=== PATIENT | female | born 1980 | race Caucasian/White ===

== ENCOUNTER → 2017-02-07 | Outpatient (CLI) | payer OTHER ==
[2017-02-07 09:21] LABS: BASOPHILS # (AUTO) 0.1 X10^3/uL (0.0-0.1); BASOPHILS % (AUTO) 1.2 % (0.2-1.0); EOSINOPHILS # (AUTO) 0.4 x10^3/uL (0.0-0.2); HEMATOCRIT 42.8 % (36.0-47.0); HEMOGLOBIN 14.8 g/dL (12.0-16.0); LYMPHOCYTES # (AUTO) 1.9 X10^3/uL (1.3-2.9); LYMPHOCYTES % (AUTO) 21.6 % (21.0-51.0); MEAN CORPUSCULAR HEMOGLOBIN 31.3 pg (27.0-34.0); MEAN CORPUSCULAR HGB CONC 34.5 g/dL (33.0-35.0); MEAN CORPUSCULAR VOLUME 90.7 fL (80.0-100.0); MEAN PLATELET VOLUME 8.4 fL (7.4-11.0); MONOCYTES # (AUTO) 0.6 x10^3/uL (0.3-0.8); MONOCYTES % (AUTO) 6.2 % (0.0-13.0); NEUTROPHILS # (AUTO) 5.9 x10^3/uL (2.2-4.8); PLATELET COUNT 224 X10^3/uL (150.0-450.0); RED BLOOD COUNT 4.72 X10^6/uL (3.5-5.4); RED CELL DISTRIBUTION WIDTH 12.7 % (11.6-16.5)
[2017-02-07 09:30] LABS: BLOOD UREA NITROGEN 9 mg/dL (7-18); CALCIUM 8.7 mg/dL (8.5-10.1); CARBON DIOXIDE 29.7 mmol/L (21-32); CHLORIDE 105 mmol/L (98-107); CREATININE 0.78 mg/dL (0.55-1.02); GLUCOSE 71 mg/dL (65-99); SODIUM 140 mmol/L (136-145); eGFR BLACK RACES > 60 (>60); eGFR NON BLACK RACES > 60 (>60)
[2017-02-07 09:33] LABS: BILIRUBIN,URINE NEGATIVE (NEGATIVE); BLOOD/HEMOGLOBIN,URINE 4+ (NEGATIVE); GLUCOSE, URINE NEGATIVE (NEGATIVE); KETONES,URINE NEGATIVE (NEGATIVE); LEUKOCYTE ESTERASE ,URINE 1+ (NEGATIVE); NITRITES,URINE NEGATIVE (NEGATIVE); PH,URINE 6.5 (5.0 - 8.0); PROTEIN,URINE NEGATIVE (NEGATIVE); UROBILINOGEN,URINE NORMAL (NORMAL)
[2017-02-07 09:39] LABS: SERUM PREGNANCY TEST, QUAL NEGATIVE <10 mIU/mL
[2017-02-07 10:07] LABS: APPEARANCE,URINE HAZY (CLEAR); BACTERIA,URINE TRACE /HPF (NEGATIVE); COLOR,URINE YELLOW (YELLOW); SQUAMOUS EPITHELIAL CELL,UR RARE /HPF (NEGATIVE)
== END ==
LOC: LAB 08:45
PROVIDERS: ATTEND Specialist
DX: Z01.818 Encounter for other preprocedural examination (principal); N92.5 Other specified irregular menstruation; N94.6 Dysmenorrhea, unspecified; R10.2 Pelvic and perineal pain
CPT/HCPCS: 36415; 80048; 81001; 84703; 85025; 85610; 85730; 86850; 86900; 86901; 87086

== ENCOUNTER 2017-02-12 06:13 | Day surgery (SDC) | payer OTHER ==
[2017-02-12] MEDS ORDERED: NS 50 ML IV + SPIKE MINIBAG* 50 ML IV ONE (06:32)
[2017-02-12] MEDS ORDERED: ANCEF VIAL 1 GM ONE (06:33)
[2017-02-12] MEDS ORDERED: D5 1/2 NS 1000 ML 1,000 ML IV ONE (06:33)
[2017-02-12] MEDS ORDERED: D5 1/2 NS 1000 ML 1,000 ML IV SCH ×2 (06:36→14:36)
[2017-02-12] MEDS ORDERED: ANCEF VIAL 1 GM 1 GM in NS 50 ML IV + SPIKE MINIBAG* 50 ML IV PRN (06:36)
[2017-02-12] MEDS ORDERED: VASOSTRICT INJ 20 UNITS VIAL ONE (06:46)
[2017-02-12] MEDS ORDERED: DURAMORPH ONE (07:01)
[2017-02-12] MEDS ORDERED: FENTANYL INJ 100 mcg ONE (07:01)
[2017-02-12 07:04] VITALS: BMI 27.4
[2017-02-12] MEDS ORDERED: NS IRRIGATION 1000 ML 1,000 ML IR ONE (07:14)
[2017-02-12] MEDS ORDERED: REGLAN INJ 10 MG VIAL IVP PRN ×2 (09:17→09:29)
[2017-02-12] MEDS ORDERED: BENADRYL INJ 50 MG VIAL IVP PRN ×3 (09:17→09:29)
[2017-02-12] MEDS ORDERED: PHENERGAN INJ 25 MG IVP PRN ×2 (09:17→17:10)
[2017-02-12] MEDS ORDERED: ZOFRAN INJ 4 MG VIAL IVP PRN ×3 (09:17→09:29)
[2017-02-12] MEDS ORDERED: TORADOL 30 MG VIAL IVP PRN (09:29)
[2017-02-12] MEDS ORDERED: PERCOCET TAB 5/325 MG PO PRN (09:29)
[2017-02-12] MEDS ORDERED: NARCAN INJ IVP PRN (09:29)
[2017-02-12] MEDS: D5 1/2 NS 1000 ML 1,000 ML IV SCH ×2 (10:41→17:37)
[2017-02-12] MEDS: TORADOL 30 MG VIAL IVP PRN (10:52)
[2017-02-12] MEDS: PERCOCET TAB 5/325 MG PO PRN (12:10)
[2017-02-12] MEDS: ESTRACE PO SCH (20:28)
[2017-02-13] MEDS: TORADOL 30 MG VIAL IVP PRN (01:24)
[2017-02-13] MEDS: D5 1/2 NS 1000 ML 1,000 ML IV SCH (03:37)
[2017-02-13 06:11] LABS: BASOPHILS % (AUTO) 0.2 % (0.2-1.0); EOSINOPHILS # (AUTO) 0.3 x10^3/uL (0.0-0.2); EOSINOPHILS % (AUTO) 2.9 % (0.9-2.9); HEMATOCRIT 34.6 % (36.0-47.0); HEMOGLOBIN 12.2 g/dL (12.0-16.0); LYMPHOCYTES # (AUTO) 1.7 X10^3/uL (1.3-2.9); MEAN CORPUSCULAR HEMOGLOBIN 31.5 pg (27.0-34.0); MEAN CORPUSCULAR HGB CONC 35.2 g/dL (33.0-35.0); MEAN CORPUSCULAR VOLUME 89.5 fL (80.0-100.0); MEAN PLATELET VOLUME 8.5 fL (7.4-11.0); MONOCYTES # (AUTO) 0.6 x10^3/uL (0.3-0.8); MONOCYTES % (AUTO) 5.9 % (0.0-13.0); NEUTROPHILS # (AUTO) 8.1 x10^3/uL (2.2-4.8); PLATELET COUNT 193 X10^3/uL (150.0-450.0); RED BLOOD COUNT 3.86 X10^6/uL (3.5-5.4); RED CELL DISTRIBUTION WIDTH 12.8 % (11.6-16.5); WHITE BLOOD COUNT 10.8 X10^3/uL (3.6-10.0)
[2017-02-13 06:26] LABS: BLOOD UREA NITROGEN 8 mg/dL (7-18); CALCIUM 7.4 mg/dL (8.5-10.1); CARBON DIOXIDE 26.2 mmol/L (21-32); CHLORIDE 104 mmol/L (98-107); CREATININE 0.64 mg/dL (0.55-1.02); GLUCOSE 110 mg/dL (65-99); SODIUM 137 mmol/L (136-145); eGFR BLACK RACES > 60 (>60); eGFR NON BLACK RACES > 60 (>60)
[2017-02-13] MEDS: ESTRACE PO SCH (08:08)
[2017-02-13] MEDS: PERCOCET TAB 5/325 MG PO PRN (08:09)
[2017-02-13] MEDS ORDERED: PROTONIX TAB 40 MG PO SCH ×2 (09:00)
[2017-02-13] MEDS ORDERED: CYMBALTA PO SCH ×2 (09:00)
[2017-02-13] MEDS ORDERED: DIOVAN TAB 80 MG PO SCH ×2 (09:00)
[2017-02-13 09:09] VITALS: BP 125/60
[2017-02-13] MEDS ORDERED: NEOSTIGMINE INJ ONE (15:33)
[2017-02-13] MEDS ORDERED: QUELICIN (OR ANECTINE) ONE (15:33)
[2017-02-13] MEDS ORDERED: ROBINUL ONE (15:33)
[2017-02-13] MEDS ORDERED: VERSED ONE (15:33)
[2017-02-13] MEDS ORDERED: SUPRANE IN ONE (15:33)
[2017-02-13] MEDS ORDERED: DIPRIVAN VIAL ONE (15:33)
[2017-02-13] MEDS ORDERED: NORCURON INJ 10 MG VIAL ONE (15:33)
[2017-02-13] MEDS ORDERED: ZOFRAN INJ 4 MG VIAL ONE (15:33)
[2017-02-13] MEDS ORDERED: DYLOJECT INJ ONE (15:33)
== END 2017-02-13 11:55 | disposition home or self-care (01) ==
LOC: SURG1 06:13 → MED/SURG 09:42
PROVIDERS: ADMIT Specialist; ATTEND Specialist
PROC: 0UTC7ZZ Resection of Cervix, Via Natural or Artificial Opening (ICD-10-PCS; 2017-02-12)
PROC: 0UT27ZZ Resection of Bilateral Ovaries, Via Natural or Artificial Opening (ICD-10-PCS; 2017-02-12)
PROC: 0UT77ZZ Resection of Bilateral Fallopian Tubes, Via Natural or Artificial Opening (ICD-10-PCS; 2017-02-12)
PROC: 0UT97ZZ Resection of Uterus, Via Natural or Artificial Opening (ICD-10-PCS; principal; 2017-02-12 07:30)
DX: D25.9 Leiomyoma of uterus, unspecified (principal); N94.6 Dysmenorrhea, unspecified; I10 Essential (primary) hypertension; K21.9 Gastro-esophageal reflux disease without esophagitis; F41.9 Anxiety disorder, unspecified
CPT/HCPCS: 36415; 80048; 85025; A4216; A4222; G0378; J0330; J0690; J1200; J1885; J2250; J2405; J2550; J2710; J2765; J3010; J3490; J7042